=== PATIENT | male | born 1970 | race African-American/Black ===

== ENCOUNTER 2024-04-09 16:24 | Emergency (ER) | payer OTHER ==
[~2024-04-09] VITALS: Ht 175.3 cm; Wt 98.8 kg
[2024-04-09 16:34] VITALS: BP 178/100; PULSE 115; RESP 18; O2SAT 96
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
== END 2024-04-09 21:17 | disposition home or self-care (01) ==
LOC: ER 16:24
DX: S01.81XA Laceration without foreign body of other part of head, initial encounter (principal); W21.11XA Struck by baseball bat, initial encounter; Y93.89 Activity, other specified; Y92.89 Other specified places as the place of occurrence of the external cause; Y99.8 Other external cause status
CPT/HCPCS: 12011